=== PATIENT | male | born 1950 | race Caucasian/White ===

== ENCOUNTER 2023-02-09 06:00 | Day surgery (SDC) | payer MEDICARE, OTHER ==
[2023-02-09] VITALS (8 sets, daily range): BP systolic 126–149; BP diastolic 36–77
[~2023-02-09] VITALS: Ht 182.9 cm; Wt 118.9 kg
[2023-02-09] MEDS ORDERED: MULT-1085 PO (06:38)
[2023-02-09] MEDS ORDERED: DILT-95 PO (06:38)
[2023-02-09] MEDS ORDERED: DABI150C PO (06:38)
[2023-02-09] MEDS ORDERED: FLEC100T2 PO (06:38)
[2023-02-09] MEDS ORDERED: TELM40TA8 PO (06:38)
[2023-02-09] MEDS ORDERED: normal saline 1,000 ML IV SCH (06:40)
[2023-02-09] MEDS ORDERED: diphenhydrAMINE 25mg capsule PO PRN (06:40)
[2023-02-09 06:56] LABS: BASOPHILS % (AUTO) 0.8 % (0-1); EOSINOPHILS # (AUTO) 0.2 X10'3 (0-0.9); EOSINOPHILS % (AUTO) 2.7 % (0-6); HEMATOCRIT 43.7 % (42.0-52.0); HEMOGLOBIN 14.9 g/dl (14.0-17.9); LYMPHOCYTES # (AUTO) 1.2 X10'3 (1.1-4.8); LYMPHOCYTES % (AUTO) 19.1 % (21-51); MEAN CORPUSCULAR HEMOGLOBIN 29.9 PG (27.0-31.0); MEAN CORPUSCULAR HGB CONC 34.2 g/dL (33.0-36.5); MEAN CORPUSCULAR VOLUME 87.4 FL (78-98); MEAN PLATELET VOLUME 7.4 FL (7.4-10.4); MONOCYTES # (AUTO) 0.5 X10'3 (0-0.9); MONOCYTES % (AUTO) 8.4 % (2-12); NEUTROPHILS # (AUTO) 4.4 X10'3 (1.8-7.7); PLATELET COUNT 330 X10'3 (140-440); RED CELL DISTRIBUTION WIDTH 13.8 % (11.5-14.5); WHITE BLOOD COUNT 6.3 X10'3 (4.5-11.0)
[2023-02-09 07:11] LABS: ALBUMIN 3.7 G/DL (3.4-5.0); ANION GAP 9 (8-16); BLOOD UREA NITROGEN 16 MG/DL (7-18); CALCIUM 9.1 MG/DL (8.5-10.1); CHLORIDE 108 MMOL/L (99-107); CREATININE 1.07 MG/DL (0.60-1.10); GLUCOSE 103 MG/DL (70-104); MAGNESIUM 2.2 MG/DL (1.5-2.4); POTASSIUM 4.4 MMOL/L (3.5-5.1); SODIUM 141 MMOL/L (135-145); eGFR 68 ML/MIN
[2023-02-09] MEDS ORDERED: fentaNYL/PF 50MCG/1 ML 2ML syringe ONE (10:17)
[2023-02-09] MEDS ORDERED: proCHLORperazine 10 MG/2 ml inj ONE (10:17)
[2023-02-09] MEDS ORDERED: midazolam 1 mg/ML 2ml injection ONE ×2 (10:17→13:10)
[2023-02-09] MEDS ORDERED: iohexol 350 MG/ML 50ML vial IV ONE (10:18)
[2023-02-09] MEDS ORDERED: iohexol 350MG/ML 100ml bottle IV ONE (10:18)
[2023-02-09] MEDS ORDERED: LIDOcaine 1% 30ml preserv. free vial ONE ×2 (10:18→11:50)
[2023-02-09] MEDS ORDERED: nitroGLYCERIN-Tridil 50MG/D5W 250 ML IV ONE (10:23)
[2023-02-09] MEDS ORDERED: verapamil 2.5 mg/ml inj IV ONE (10:23)
[2023-02-09] MEDS ORDERED: heparin 1,000unit/ml 10ml vial 10 ML ONE (10:24)
[2023-02-09] MEDS ORDERED: normal saline 1000ml 1,000 ML IV SCH (14:05)
[2023-02-09] MEDS ORDERED: ondansetron/PF 4mg/2ml inj IV PRN (14:05)
[2023-02-09] MEDS ORDERED: proCHLORperazine 10 MG/2 ml inj IV PRN (14:10)
[2023-02-09] MEDS ORDERED: HYDROcodone/acetaminophen 5mg/325mg tablet PO PRN (14:10)
[2023-02-09] MEDS ORDERED: HYDROcodone/acetaminophen 10/325mg tab PO PRN (14:10)
[2023-02-10] MEDS ORDERED: SODIUM BICARB 150mEq/D5W 1L 999 ML IV SCH ×2 (06:40)
== END 2023-02-09 17:00 | disposition home or self-care (01) ==
LOC: SSTAY O 06:00
PROVIDERS: ATTEND Internal Medicine Cardiovascular Disease
DX: R07.9 Chest pain, unspecified (principal); R94.30 Abnormal result of cardiovascular function study, unspecified; I48.0 Paroxysmal atrial fibrillation; G47.30 Sleep apnea, unspecified; F43.10 Post-traumatic stress disorder, unspecified; I25.10 Atherosclerotic heart disease of native coronary artery without angina pectoris; K21.9 Gastro-esophageal reflux disease without esophagitis; I10 Essential (primary) hypertension; E03.9 Hypothyroidism, unspecified; Z79.01 Long term (current) use of anticoagulants; Z87.11 Personal history of peptic ulcer disease; Z79.899 Other long term (current) drug therapy; Z98.890 Other specified postprocedural states; Z72.89 Other problems related to lifestyle; Z87.891 Personal history of nicotine dependence; Z88.8 Allergy status to other drugs, medicaments and biological substances; Z82.5 Family history of asthma and other chronic lower respiratory diseases
CPT/HCPCS: 36415; 80048; 83735; 85025; 85610; 93005; 93458; 99152; 99153; A6258; C1894; J0780; J1644; J2250; J3010; J3490; J7030; Q0163; Q9967

== ENCOUNTER 2023-08-10 05:44 | Day surgery (SDC) | payer MEDICARE, OTHER ==
[2023-08-10] VITALS (8 sets, daily range): BP systolic 112–144; BP diastolic 63–72; PULSE 60–65; RESP 7–18; TEMP 98.6; O2SAT 92–97
[~2023-08-10] VITALS: Ht 182.9 cm; Wt 115.3 kg
[~2023-08-10 05:44] MED LIST: DABI150C PO; DILT-95 PO; FLEC100T2 PO; MULT-1085 PO; TELM40TA8 PO
[2023-08-10] MEDS ORDERED: ceFAZolin inj. 2,000 MG in normal saline 100ml IV soln 100 ML IV ONE (06:20)
[2023-08-10] MEDS ORDERED: vancomycin/NS 1 GM ADD-VANTAGE 250 ML IV ONE (06:20)
[2023-08-10] MEDS ORDERED: ceFAZolin inj. 2,000 MG in dextrose 5%-water 100 ML IV ONE (06:25)
[2023-08-10 06:56] LABS: BASOPHILS # (AUTO) 0.1 X10'3 (0-0.2); BASOPHILS % (AUTO) 0.8 % (0-1); EOSINOPHILS # (AUTO) 0.2 X10'3 (0-0.9); EOSINOPHILS % (AUTO) 3.1 % (0-6); HEMATOCRIT 42.5 % (42.0-52.0); HEMOGLOBIN 14.4 g/dl (14.0-17.9); LYMPHOCYTES # (AUTO) 1.4 X10'3 (1.1-4.8); LYMPHOCYTES % (AUTO) 19.5 % (21-51); MEAN CORPUSCULAR HEMOGLOBIN 29.7 PG (27.0-31.0); MEAN CORPUSCULAR HGB CONC 33.8 g/dL (33.0-36.5); MEAN CORPUSCULAR VOLUME 87.8 FL (78-98); MEAN PLATELET VOLUME 7.6 FL (7.4-10.4); MONOCYTES # (AUTO) 0.6 X10'3 (0-0.9); MONOCYTES % (AUTO) 8.2 % (2-12); NEUTROPHILS # (AUTO) 4.9 X10'3 (1.8-7.7); NEUTROPHILS % (AUTO) 68.4 % (42-75); PLATELET COUNT 311 X10'3 (140-440); RED BLOOD COUNT 4.84 X10'6 (4.70-6.10); RED CELL DISTRIBUTION WIDTH 13.9 % (11.5-14.5); WHITE BLOOD COUNT 7.1 X10'3 (4.5-11.0)
[2023-08-10 07:00] LABS: PROTHROMBIN TIME 10.9 SECONDS (9.0-12.0)
[2023-08-10 07:15] LABS: ALBUMIN 3.9 G/DL (3.4-5.0); ANION GAP 6 (8-16); BLOOD UREA NITROGEN 16 MG/DL (7-18); BUN/CREATININE RATIO 14.7 (10.0-20.0); CALCIUM 9.2 MG/DL (8.5-10.1); CHLORIDE 105 MMOL/L (99-107); CREATININE 1.09 MG/DL (0.60-1.10); GLUCOSE 101 MG/DL (70-104); MAGNESIUM 2.2 MG/DL (1.5-2.4); SODIUM 137 MMOL/L (135-145); TOTAL CARBON DIOXIDE 25.8 MMOL/L (24-32); eGFR 66 ML/MIN
[2023-08-10] MEDS ORDERED: iohexol 350 MG/ML 50ML vial IV ONE (07:17)
[2023-08-10] MEDS ORDERED: vancomycin 1,000mg inj ONE (07:17)
[2023-08-10] MEDS ORDERED: midazolam 1 mg/ML 2ml injection ONE ×2 (07:17→07:59)
[2023-08-10] MEDS ORDERED: fentaNYL/PF 50MCG/1 ML 2ML syringe ONE ×2 (07:17→08:51)
[2023-08-10] MEDS ORDERED: LIDOCAINE 2%/EPI 1:100,000 inj. Multi-dose 20 ML VIAL ONE (07:17)
== END 2023-08-10 11:55 | disposition home or self-care (01) ==
LOC: SSTAY O 05:44
PROVIDERS: ATTEND Internal Medicine Cardiovascular Disease
DX: I49.5 Sick sinus syndrome (principal); I48.0 Paroxysmal atrial fibrillation; I25.10 Atherosclerotic heart disease of native coronary artery without angina pectoris; K21.9 Gastro-esophageal reflux disease without esophagitis; F43.10 Post-traumatic stress disorder, unspecified; G47.30 Sleep apnea, unspecified; Z79.899 Other long term (current) drug therapy; Z82.5 Family history of asthma and other chronic lower respiratory diseases
CPT/HCPCS: 33208; 33286; 36415; 71045; 80048; 83735; 85025; 85610; 93005; 99152; 99153; C1785; C1898; J2250; J3010; J3370; J7030; Q9967; A4565; A4615; A4620